=== PATIENT | female | born 1995 | race Caucasian/White ===

== ENCOUNTER 2019-07-14 12:45 | Emergency (ER) | payer OTHER ==
--- NOTE | 2019-07-14 13:16 | ER Document Report ---
ED Medical Screen (RME) - General Chief Complaint: Chest Pain Stated Complaint: CHEST PAIN Time Seen by Provider: 07/14/19 13:11 Mode of Arrival: Ambulatory Information source: Patient Notes: 24-year-old female with history of asthma presenting to the emergency department multiple complaints today. Patient reports that she has been wheezing more than usual lately, she has been taking her albuterol without relief. She states in the middle the night she wakes up gasping for air. She states she has had a persistent cough for the last several months. She also reports intermittent upper abdominal pain with green diarrhea daily. Denies any recent travel, denies fever, denies any contact with any COVID-19 positive persons. No acute distress noted, lung sounds clear and equal bilaterally. I have greeted and performed a rapid initial assessment of this patient. A comprehensive ED assessment and evaluation of the patient, analysis of test results and completion of the medical decision making process will be conducted by additional ED providers. I have specifically instructed the patient or family members with the patient to immediately return to any nursing staff should anything change in the patient's condition or with their chief complaint. - Related Data Allergies/Adverse Reactions: amoxicillin Allergy (Verified 07/14/19 13:11) Hives tramadol Allergy (Verified 07/14/19 13:11) hallucination, vomiting Physical Exam - Vital signs Vitals: Temp Pulse Resp BP Pulse Ox 98.9 F 71 16 111/72 98 07/14/19 12:57 07/14/19 12:57 07/14/19 12:57 07/14/19 12:57 07/14/19 12:57 Course - Vital Signs Vital signs: Temp Pulse Resp BP Pulse Ox 98.9 F 71 16 111/72 98 07/14/19 12:57 07/14/19 12:57 07/14/19 12:57 07/14/19 12:57 07/14/19 12:57
[2019-07-14 13:58] LABS: ABSOLUTE BASOPHILS # (AUTO) 0.1 10^3/uL (0.0-0.2); ABSOLUTE EOSINOPHILS # (AUTO) 0.3 10^3/uL (0.0-0.6); ABSOLUTE LYMPHOCYTES (AUTO) 1.7 10^3/uL (0.5-4.7); ABSOLUTE MONOCYTES (AUTO) 0.6 10^3/uL (0.1-1.4); ABSOLUTE NEUT (AUTO) 3.8 10^3/uL (1.7-8.2); BASOPHILS % (AUTO) 0.9 % (0-2); HEMATOCRIT 44.2 % (36.0-47.0); HEMOGLOBIN 15.7 g/dL (12.0-15.5); LYMPHOCYTES % (AUTO) 26.5 % (13-45); MEAN CORPUSCULAR HEMOGLOBIN 32.3 pg (27.0-33.4); MEAN CORPUSCULAR HGB CONC 35.5 g/dL (32.0-36.0); MEAN CORPUSCULAR VOLUME 91 fl (80-97); MONOCYTES % (AUTO) 8.9 % (3-13); PLATELET COUNT 229 10^3/uL (150-450); RED BLOOD COUNT 4.86 10^6/uL (3.72-5.28); RED CELL DISTRIBUTION WIDTH 12.3 % (11.5-14.0); SEGMENTED NEUTROPHILS % (AUTO) 59.7 % (42-78); TOTAL CELLS COUNTED % (AUTO) 100 %; WHITE BLOOD COUNT 6.4 10^3/uL (4.0-10.5)
[2019-07-14 14:05] LABS: APPEARANCE,URINE CLEAR; BILIRUBIN,URINE NEGATIVE (NEGATIVE); COLOR,URINE STRAW; GLUCOSE, URINE NEGATIVE (NEGATIVE); KETONES,URINE NEGATIVE (NEGATIVE); LEUKOCYTE ESTERASE,URINE NEGATIVE (NEGATIVE); NITRITE,URINE NEGATIVE (NEGATIVE); PROTEIN,URINE NEGATIVE (NEGATIVE); URINE SPECIFIC GRAVITY 1.004; UROBILINOGEN,URINE NEGATIVE mg/dL (<2.0)
--- NOTE | 2019-07-14 14:10 | RADIOLOGY REPORT (SQ) ---
EXAM DESCRIPTION: CHEST SINGLE VIEW IMAGES COMPLETED DATE/TIME: 07/14/2019 1:57 pm REASON FOR STUDY: cough/shortness of breath COMPARISON: None. TECHNIQUE: Single frontal radiographic view of the chest acquired. NUMBER OF VIEWS: One view. LIMITATIONS: None. FINDINGS: LUNGS AND PLEURA: No pneumothorax. No consolidation or pleural effusion. MEDIASTINUM AND HILAR STRUCTURES: No contour abnormalities. HEART AND VASCULAR STRUCTURES: Heart normal size. BONES: No acute findings. HARDWARE: None in the chest. OTHER: No other significant finding. IMPRESSION: NO ACUTE FINDINGS. TECHNICAL DOCUMENTATION: JOB ID: [id number] [place]-72 2010 [email or web address]- All Rights Reserved Reading location - IP/workstation name: [email or web address]
[2019-07-14] MEDS ORDERED: IPRATROPIUM/ALBUTEROL 0.5-2.5 MG/3 ML AMPUL NEB ONE (14:16)
[2019-07-14] MEDS ORDERED: METHYLPREDNISOLONE INJ 125 MG/2 ML SDV IV ONE (14:17)
[2019-07-14 14:18] LABS: ALBUMIN 4.8 g/dL (3.5-5.0); ALKALINE PHOSPHATASE 60 U/L (38-126); ANION GAP 7 (5-19); ASPARTATE AMINO TRANSFERASE 21 U/L (14-36); BILIRUBIN,TOTAL 0.7 mg/dL (0.2-1.3); BLOOD UREA NITROGEN 10 mg/dL (7-20); CALCIUM 9.9 mg/dL (8.4-10.2); CARBON DIOXIDE 27 mmol/L (22-30); CHLORIDE 103 mmol/L (98-107); GLUCOSE 81 mg/dL (75-110); POTASSIUM 4.5 mmol/L (3.6-5.0); TOTAL PROTEIN 7.7 g/dL (6.3-8.2)
--- NOTE | 2019-07-14 14:22 | ER Document Report ---
ED Respiratory Problem - General Chief Complaint: Breathing Difficulty Stated Complaint: CHEST PAIN Time Seen by Provider: 07/14/19 13:11 Mode of Arrival: Ambulatory Information source: Patient Notes: Patient is a 24-year-old female comes emergency room complaining of exacerbation of her asthma. Patient states for the past 3 or 4 days she has had increased asthmatic type symptoms. She has been waking up in the middle of night gasping for air. She does state that she keeps her air conditioner set at 68 and use the ceiling fans as well. She states that she has been noticing more increased wheezing throughout the day as well. She does admit to smoking approximately 4 cigarettes a day. She has a history of asthma since she was a child and also history of heart palpitation since a child. She states she has been worked up extensively for cardiac and cannot find any associations or cause of the palpitations. She also has complaints of right upper quadrant pain for the past 2 months. Has a history of gastric ulcers and takes Nexium but admittedly does not take it on a regular basis. She also states that she has had some greenish type stools in the mornings for the past several days as well. Last menstrual period was approximately 1 month ago. She denies any contact with any known COVID carriers. 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 She denies any fever nausea vomiting but has had the greenish diarrhea. She also admits to some mild chest pain when she gets coughing. - HPI Patient complains to provider of: Asthma, Cough, Hurts to breath Onset: Other - Worse the past 3 to 4 days Duration: Continuous Initiating Event: Allergy, Other - At night mostly Quality of pain: Achy, Throbbing Severity: Moderate Pain Level: 3 Context: Hx asthma, Smoker. denies: Malignancy, , Recent cardiac event, Recent foreign travel, Recent long distance trvl Short of Breath: Moderate Chest pain/discomfort: Intermittent, Worse with deep breaths. denies: Radiates to arm, Radiates to back, Radiates to jaw, Tightness Cough: Nonproductive Sputum amount: None At home treatment: Bronchodilators Associated symptoms: Congestion, Cough, Difficulty breathing, Hurts to breathe, Sinus pain/pressure, Wheezing Similar symptoms previously: Yes Recently seen / treated by doctor: No - Related Data Allergies/Adverse Reactions: amoxicillin Allergy (Verified 07/14/19 13:11) Hives tramadol Allergy (Verified 07/14/19 13:11) hallucination, vomiting Home Medications: Albuterol Past Medical History - General Information source: Patient - Social History Smoking Status: Current Every Day Smoker Chew tobacco use (# tins/day): No Frequency of alcohol use: Occasional Drug Abuse: Marijuana Family History: Reviewed & Not Pertinent Patient has homicidal ideation: No Review of Systems - Review of Systems Constitutional: denies: Fever, Malaise, Weakness, Recent illness EENT: Nose congestion, Sinus pressure Cardiovascular: See HPI, Palpitations Respiratory: See HPI, Cough, Hurts to breathe, Wheezing Gastrointestinal: No symptoms reported Genitourinary: No symptoms reported Female Genitourinary: No symptoms reported Musculoskeletal: No symptoms reported Skin: No symptoms reported Hematologic/Lymphatic: No symptoms reported Neurological/Psychological: No symptoms reported -: Yes All other systems reviewed and negative Physical Exam - Vital signs Vitals: Temp Pulse Resp BP Pulse Ox 98.9 F 71 16 111/72 98 07/14/19 12:57 07/14/19 12:57 07/14/19 12:57 07/14/19 12:57 07/14/19 12:57 Interpretation: Normal - Notes Notes: PHYSICAL EXAMINATION: GENERAL: Well-appearing, well-nourished and in no acute distress. HEAD: Atraumatic, normocephalic. EYES: Pupils equal round and reactive to light, extraocular movements intact, conjunctiva are normal. ENT: Examination upper airway showed nasal mucosa to be mildly erythematous and edematous with some rhinorrhea a clear in color. No frontal or maxillary sinus tenderness to palpation. Bilateral TMs appear normal no bulging or retraction. Posterior pharynx shows some mild light noncolored clear drainage. Uvula is midline no erythema no exudates are noted and airways patent. LUNGS: Examination patient's lungs auscultation shows bilateral breath sounds patient has increased breath sounds throughout but with forced inspiratory and expiratory breaths patient has noticeable wheeze with inspiratory and expiratory. This is bilaterally but seem more prominent in the right upper lung area. HEART: Regular rate and rhythm without murmurs ABDOMEN: Examination patient's abdomen shows that she is bowel sounds present all 4 quads. She is mildly tender in the right upper quadrant to deep inhalation mild Robles sign noted. No other discomfort or tenderness noted on abdominal exam. Female : deferred Musculoskeletal: Normal range of motion, no pitting or edema. No cyanosis. NEUROLOGICAL: Normal speech, normal gait. Normal sensory, motor exams PSYCH: Normal mood, normal affect. SKIN: Warm, Dry, normal turgor, no rashes or lesions noted. Course - Re-evaluation Re-evalutation: 07/14/19 15:40 Patient's labs came back normal. The only abnormality was a 17 hemoglobin. The patient smokes. Patient gained significant benefit from the Solu-Medrol and the DuoNeb. She only takes an MDI now and is requesting a nebulizer machine. I informed her I would go ahead and write her prescription for when she had insurance that might help. We will also write her for prescription for the MDI as well as for the DuoNeb. She has been instructed that she needs to get on her Nexium continuously and to use an antihistamine but no decongestant. - Vital Signs Vital signs: Temp Pulse Resp BP Pulse Ox 98.9 F 71 16 111/72 98 07/14/19 13:11 07/14/19 12:57 07/14/19 12:57 07/14/19 12:57 07/14/19 12:57 - Laboratory Result Diagrams: 07/14/19 13:35 07/14/19 13:35 Laboratory results interpreted by me: 07/14/19 07/14/19 13:35 13:35 Hgb 15.7 H Sodium 136.5 L Discharge - Discharge Clinical Impression: Sinus congestion, Peptic ulcer disease Asthma Qualifiers: Asthma severity: moderate Asthma persistence: persistent Asthma complication type: uncomplicated Qualified Code(s): J45.40 - Moderate persistent asthma, uncomplicated Condition: Stable Disposition: HOME, SELF-CARE Instructions: Acid-Suppressing Medication ([facility]), Reflux Disease (GERD) ([facility]), Asthma ([facility]) Additional Instructions: ASTHMA: You have been diagnosed as having asthma. This is a condition where there is episodic tightness in the bronchial tubes. Allergies, infections, and polluted or cold air may be contributing factors. Emergency treatment of a severe asthma attack may include adrenaline shots, or bronchodilator aerosol. You may feel lightheaded, have a decreased exercise tolerance and a rapid pulse for an hour or two. Rest and get plenty of fluids. Home treatment of asthma requires bronchodilator drugs. These can be administered by injection, inhalation, or by mouth. Antibiotics and corticosteroids may be required for some patients. You should avoid chemical fumes, dusts, pollens, and exercising in very cold or dry air. If you smoke, stop!! If you develop a fever, increased wheezing, chest pain, or severe shortness of breath, you should contact the doctor immediately. STEROID MEDICATION: You have been given an injection of or oral medicine of the cortisone/steroid class. This medication is used to control inflammation or allergy. Rene t is usually only given for a short period of time, until the acute process subsides. There are usually no side effects from short-term use of cortisone-like medications. Some persons feel an increased sense of well-being and are not sleepy at bedtime. Long-term use of cortisone medications is best avoided, unless required for a severe condition. If your condition does not remit, or relapses after the course of corticosteroid medication, you should consult your physician. INHALED BRONCHODILATORS: You have received treatment(s) of and/or prescription for an inhaled bronchodilator -- a medication which stimulates the airways in the lung to dilate. This improves the flow of air in asthma, bronchitis, and emphysema. These medicines have some similarity to adrenaline, and can cause similar side effects: shakiness, racing heart, and a sense of nervousness. These side effects decrease with time. Contact your doctor if these side effects are severe. Do not over-use the medicine. Too-frequent use of the inhaler may make it ineffective. Call your doctor if the inhaler is not controlling your symptoms at the prescribed doses. SMOKING: If you smoke, you should stop smoking. The tar and chemicals in cigarette smoke are harmful. Smoking has been shown to cause: emphysema chronic bronchitis lung cancer mouth and throat cancer stomach and pancreas cancer premature aging defects In addition, smoking increases ear and lung infections in children of smokers. FOLLOW-UP CARE: If you have been referred to a physician for follow-up care, call the physicians office for an appointment as you were instructed or within the next two days. If you experience worsening or a significant change in your symptoms, notify the physician immediately or return to the Emergency Department at any time for re-evaluation. Reflux Disease (GERD) Gastro-Esophageal Reflux Disease (GERD) is caused by stomach acid refluxing back up into the esophagus. The valve at the end of the esophagus may be weak. This is common in persons with a hiatal hernia. GERD symptoms can include indigestion, chest pain, heartburn, or food "sticking." Certain foods, alcohol, and aspirin can make GERD worse. Treatment depends on the severity. Usually, antacids or acid-suppressing medicines are used. When the esophagus is acutely inflamed, the physician will often prescribe membrane-protective drugs such as Carafate. Some patients benefit from medication such as Reglan that tightens the valve at the top of the stomach. Avoid those foods that bring on your symptoms. For many people, these foods are coffee, chocolate, onions, garlic, and carbonated drinks. Don't use alcohol, aspirin, caffeine, or tobacco. Don't eat late at night -- within 4 hours of bedtime. Don't over-eat. If necessary, elevate the head of your bed about 4 inches so that stomach acid will not roll up into your esophagus. Call the doctor if you develop severe chest pain, inability to swallow fluids, fever, or worsening symptoms. Prescriptions: Chlorpheniramine Maleate [Chlor-Trimeton 4 Mg Tablet] 4 mg PO Q6HP PRN #20 tablet PRN Reason: Ipratropium/Albuterol Sulfate [Duoneb 3 ml Ampul] 3 ml NEB RTQ6HP PRN #60 vial.neb PRN Reason: Esomeprazole Magnesium [Nexium 24Hr] 20 mg PO DAILY #30 capsule. Prednisone 10 mg PO ASDIR 6 Days #1 tab.ds.pk Albuterol Sulfate [Proair HFA Inhalation Aerosol 8.5 gm MDI] 2 puff IH Q4H PRN #1 mdi PRN Reason: Forms: Smoking Cessation Education, Return to Work Referrals: [facility] [Outside] - Follow up as needed
[2019-07-14 16:13] VITALS: BP 98/61
--- NOTE | 2019-07-14 21:20 | EKG REPORT ---
SEVERITY:- NORMAL ECG - SINUS RHYTHM : Confirmed by: Darrell Robles MD 14-Jul-2019 21:18:15
== END 2019-07-14 16:13 | disposition home or self-care (01) ==
LOC: ER 12:45
DX: K27.9 Peptic ulcer, site unspecified, unspecified as acute or chronic, without hemorrhage or perforation (principal); J45.40 Moderate persistent asthma, uncomplicated; R09.81 Nasal congestion; R07.9 Chest pain, unspecified; R19.5 Other fecal abnormalities; R06.02 Shortness of breath; R05 Cough; M54.9 Dorsalgia, unspecified; R68.84 Jaw pain; R51 Headache; F17.200 Nicotine dependence, unspecified, uncomplicated; J45.909 Unspecified asthma, uncomplicated
CPT/HCPCS: 93005; 94640; 99285; 96374; 36415; 83690; 85025; 81025; 80053; 81001; 71045; 93010; J2930; J7620